=== PATIENT | male | born 2000 | race Caucasian/White ===

== ENCOUNTER 2022-01-16 15:29 | Emergency (ER) | payer OTHER, SELFPAY ==
--- NOTE | 2022-01-16 15:33 | ED.SKABFB ---
HPI - Skin/Abscess/Foreign Bdy General Chief complaint: Skin/Abscess/Foreign Body Stated complaint: body rash and lower half of body Time Seen by Provider: 01/16/22 15:32 Source: patient Mode of arrival: ambulatory Limitations: no limitations History of Present Illness HPI narrative: Amado is a 21-year-old male patient presenting to the clinic today with complaints of a rash. He reports he 1st developed this rash this morning. Reports that the rash is very itchy and raised. The rash is in his genital area and covering his bilateral lower legs. He denies any shortness of breath or tongue swelling. He denies any new environmental changes, soaps, shampoos, foods, or medication. Related Data Allergies Allergy/AdvReac Type Severity Reaction Status Date / Time No Known Allergies Allergy Verified 01/16/22 15:51 Review of Systems Review of Systems: Pertinent positives per HPI. Patient denies any fever, chills, headache, visual changes, dizziness, cough, runny nose, sore throat, shortness of breath, chest pain, palpitations, nausea, vomiting, diarrhea, constipation, abdominal pain, or any urinary issues. PMFSH Comments At the time of my signature, I reviewed and agree with the nursing past medical, surgical, social, and family history. There is no relevant family history pertinent to the patient complaint. Exam Narrative: General: Well-developed, well nourished, in no apparent distress Head: Normocephalic, atraumatic. Cardio: Regular rate and rhythm, s1 and s2 normal, no murmur appreciated. Resp: Clear to auscultation bilaterally, no rhonchi, rales, wheezing or rubs. Integumentary: [place], warm, and dry, urticaria like itchy raised red rash to the bilateral legs, buttocks, and genitalia Course Course Emergency Course: Portions of this record may have been created with voice recognition software. Level of Care: Express Care Visit Vital Signs Vital signs: Vital Signs Temperature 36.7 C 01/16/22 15:40 Pulse Rate 101 H 01/16/22 15:40 Respiratory Rate 16 01/16/22 15:40 Blood Pressure 149/84 H 01/16/22 15:40 Pulse Oximetry 97 01/16/22 15:40 Oxygen Delivery Room Air 01/16/22 15:40 Temperature 36.7 C 01/16/22 15:40 Pulse Rate 101 H 01/16/22 15:40 Respiratory Rate 16 01/16/22 15:40 Blood Pressure 149/84 H 01/16/22 15:40 Pulse Oximetry 97 01/16/22 15:40 Oxygen Delivery Room Air 01/16/22 15:40 Vital signs reviewed MDM - Skin/Abscess/Foreign Bdy MDM Narrative Medical decision making narrative: At the time of visit patient is resting comfortably on the exam table. I suspect the patient has hives of unknown etiology. Will give dexamethasone 10 mg IM in the clinic today and this improved his symptoms. Prescription for prednisone was given to the patient. Supportive measures were discussed with the patient he voiced understanding of discharge instructions and agrees to treatment plan. Differential Diagnosis Differential diagnosis: Likely urticaria, eczema and contact dermatitis Discharge Plan Discharge Clinical Impression: Hives Patient Disposition: Home, Self-Care Condition: Stable Instructions: Antibiotic Form, Urticaria (ED) Additional Instructions: Dexamethasone 10 mg IM given in the clinic today Take prednisone as prescribed starting tomorrow January 17, 2022 May take Benadryl 25-50 mg every 6 hours as needed for itching May take Pepcid 20 mg daily x7 days Avoid hot showers Avoid scratching Follow-up with your PCP in 3-5 days if symptoms persist or sooner if they worsen Prescriptions: New prednisone 20 mg tablet 40 mg PO DAILY 5 Days Qty: 10 0RF Follow-up/Referrals: UNKNOWN,DOCTOR [Primary Care Provider] - Time of Disposition: 16:21 Quality NIHSS Nursing Documentation ED NIHSS nursing documentation: reviewed/agree
[2022-01-16 15:40] VITALS: BP 149/84; PULSE 101; RESP 16; TEMP 36.7; O2SAT 97
== END 2022-01-16 16:26 | disposition home or self-care (01) ==
PROVIDERS: Emergency Provider Nurse Practitioner Family
DX: L50.9 Urticaria, unspecified (principal)
CPT/HCPCS: 96372; 99213; G0463; J1100